=== PATIENT | male | born 1940 | race Caucasian/White ===

== ENCOUNTER 2020-12-22 16:27 | Inpatient (IN) | payer OTHER ==
[2020-12-22] MEDS ORDERED: ACETAMINOPHEN 500 MG TAB PO PRN (16:37)
[2020-12-22] MEDS ORDERED: MAGNES/ALUMIN/SIMET 30ML UCUP PO PRN (16:37)
[2020-12-22 17:26] LABS: Absolute Lymphocytes (CBC) 0.6 K/uL (0.7-4.9); Basophils % 0.3 % (0-1.3); Hematocrit 33.7 % (39.6-49.0); Lymphocytes % 5.1 % (15.3-44.8); RBC Red Blood Cell Count 3.42 M/uL (4.33-5.43)
[2020-12-22 17:34] VITALS: BMI 24.3
[2020-12-22 17:38] LABS: Albumin 2.4 g/dL (3.4-5.0); Bilirubin Total 0.4 mg/dL (0.2-1.0); Magnesium 2.7 mg/dL (1.8-2.4); Phosphorus 4.7 mg/dL (2.5-4.9); Potassium 4.9 mmol/L (3.5-5.1); Protein, Total 7.3 g/dL (6.4-8.2); Thyroid Stimulating Hormone 2.77 uIU/mL (0.360-3.740)
[2020-12-22 19:36] LABS: Urine Appearance CLOUDY (Clear); Urine Bilirubin NEGATIVE (Negative); Urine Blood 3+ (Negative); Urine Color Red (Yellow); Urine Glucose NEGATIVE (Negative); Urine Protein 2+ (Negative); Urine Specific Gravity <=1.005 (1.005-1.030); Urine Urobilinogen 0.2 mg/dL (0.2-1.0); Urine pH 6.5 (5.0-7.0)
[2020-12-22 20:04] LABS: Urine Bacteria <20 /HPF (NONE SEEN); Urine RBC TNTC /HPF (NONE SEEN)
[2020-12-22] MEDS: ALPRAZOLAM 0.25 MG TABLET PO PRN (20:06)
[2020-12-22] MEDS: TAMSULOSIN 0.4 MG SR CAP PO SCH (20:06)
[2020-12-22] MEDS: NA CHLORIDE 0.9% 1,000 ML IV SCH (20:06)
--- NOTE | 2020-12-22 20:16 | RAD REPORT ---
EXAM DESCRIPTION: RAD - Chest Single View - 12/22/2020 8:08 pm CLINICAL HISTORY: acute renal failure Chest pain. COMPARISON: No comparisons FINDINGS: Portable technique limits examination quality. There is a mild opacity seen in the medial right lung base which probably represents developing pneum onia. There is also haziness in the medial left lung base. The heart is upper limit normal size. No d isplaced fractures.
[2020-12-22 20:58] LABS: Blood Morphology Comment NOT SEEN (NOT SEEN); Platelet Estimate ADEQ
[2020-12-22] MEDS ORDERED: FINASTERIDE 5 MG TAB PO SCH (21:00)
[2020-12-22] MEDS ORDERED: HEPARIN 5000 UNIT/ML 1 ML VIAL SQ SCH (21:00)
[2020-12-23 04:26] LABS: Magnesium 2.4 mg/dL (1.8-2.4); Potassium 5.3 mmol/L (3.5-5.1)
[2020-12-23] MEDS: NA CHLORIDE 0.9% 1,000 ML IV SCH (04:38)
[2020-12-23] MEDS ORDERED: SOD POLYSTYREN SUL 15 GM/60 ML UCUP PO ONE (04:41)
[2020-12-23] MEDS: D5 0.45 NS 1,000 ML IV SCH ×2 (05:59→15:56)
[2020-12-23] MEDS: CEFTRIAXONE/SWI 1gm 1 GM/10 ML SYR IVP SCH (07:36)
[2020-12-23] MEDS ORDERED: CEFTRIAXONE 1 GM/NS 50 ML 1 GM/50 ML BAG IV SCH (09:00)
[2020-12-23] MEDS: TAMSULOSIN 0.4 MG SR CAP PO SCH (21:33)
[2020-12-23] MEDS: ALPRAZOLAM 0.25 MG TABLET PO PRN (21:34)
--- NOTE | 2020-12-24 00:11 | CON ---
Date of Consultation: 12/23/2020 Chief Complaint: Abnormal renal function test, acute kidney injury on chronic kidney disease. History Of Present Illness: The patient came to the hospital because of generalized weakness. Chest x-ray showed possible pneumonia. Renal panel showed elevated BUN and creatinine. The patient had F oley catheter. It was placed in the emergency room. Previously, he did not have any hematuria or dy suria or kidney stone. Workup is pending to screen for obstructive uropathy. Chest x-ray demonstrat ed likely early pneumonia. There is also haziness in the medial left lung base and medial right lung base is representing developing pneumonia. The patient does not have any recollection about kidney problem. He denies nonsteroidal anti-inflammatory medication. On arrival to the hospital, creatinin e was 2.8 and BUN 63. Electrolytes showed sodium 143, potassium 4.9, chloride 111, CO2 24, magnesium 2.7, phosphorus 4.7, calcium 8.9. The patient had urinalysis done and it showed 2+ protein, 3+ bloo d, presence of the red blood cells, WBC ranging from 5-10, although nitrates are negative and urine k etones is trace. Review of Systems: Constitutional: The patient denies fever or chills. Physical examination. Eyes: Denies vision changes. Ears, Nose, Mouth, and Throat: Denies sore throat or earache. Respiratory: Denies PND or orthopnea. He has shortness of breath. He is bedbound. GI: Denies nausea, vomiting, melena, hematemesis. : Denied dysuria or hematuria, although he has a chronic catheter, which was placed during this ad mission. There is no blood in the urine at this point. There is no microscopic hematuria. There is no gross hematuria. Past Medical History: The patient denies history of kidney stones. There is no chronic kidney disea se history in this particular patient. He has history of BPH and had lower urinary tract symptoms be fore he was taking Flomax. He has history of anxiety, allergic rhinitis, hyperlipidemia. Social History: Denies tobacco, alcohol, or illicit drugs. Family History: No kidney disease in the family. Physical Examination: General: The patient is awake, alert, follows commands. Eyes: Anicteric sclerae. EOMI. Ears, Nose, Mouth, and Throat: Oral mucosa moist. No pallor. Neck: Supple. No bruits. Lungs: Clear to auscultation bilaterally. Heart: S1, S2. Abdomen: Soft, benign. Extremities: No edema. Laboratory Data: Potassium is 5.3, sodium 136, chloride 114, CO2 28, BUN 44, creatinine 2.23, phosph orus 4.7, magnesium 2.4, BNP is 13,510, albumin 2.4, total protein 7.3. Impression And Plan: 1.Acute kidney injury. Serum creatinine has improved. The patient will continue low-sodium diet an d low-potassium diet. Potassium is up to 5.3. Re-evaluate blood work. 2.Pneumonia, shortness of breath. Continue antibiotics. 3.Urinalysis demonstrated WBC and multiple red blood cells, although the specimen was obtained via t he Lara catheter. There is 2+ proteinuria, which corresponds to moderately severe proteinuria. Sammie n is to check for any evidence of monoclonal gammopathy of unknown significance. Plan is to check sc reen for vasculitis and obtain previous medical history from primary care physician. AMAYA/LILIANA Voice ID: [id number] Report ID: [id number]
--- NOTE | 2020-12-24 01:51 | HP ---
Date of Admission: 12/23/2020 Chief Complaint: Stomach pain. History Of Present Illness: This is an 80-year-old very pleasant male patient, who saw Dr. De Guzman as his primary care provider about 10-[address] ago [address] after [address] De Guzman , he has not seen any physician in last several years. The patient does not take any medications at home and says he was feeling fine until last 2 weeks or so, his health has deteriorated. He says about 2 weeks ago, he had some stomach discomfort, felt like stomach upset and after couple of days, he got better and then he got sick to his stomach again. In last one week, he noted that his appetite has not been as good as before and he had some lower abdominal discomfort. With all these complaints, he went to [place] emergency room yesterday where he was found to have acute renal failure, elevated potassium. CAT scan of the chest and abdomen done, which showed some significant abnormality with bilateral pleural effusion and also distended urinary bladder with bilateral hydronephrosis. Dr. Lake placed a 16-Iraqi Lara catheter and drained approximately 1 L of urine, and he contacted me requesting admission to the our hospital and I agreed to take care of him at our facility. I saw him this morning and this was the first time I ever met this patient. He denies any chest pain. Denies any shortness of breath. Denies any significant weight changes lately. No leg swelling. No paroxysmal nocturnal dyspnea or orthopnea. He has had some back pain off and on lately. Allergies: PENICILLIN, DETAILS UNKNOWN. Medications: He was not taking any medications prior to this hospital admission. Review of Systems: GI: As mentioned above. Musculoskeletal: As mentioned above. Genitourinary: As mentioned above. All other systems reviewed and negative. Past Surgical History: Hernia repair at age 4 years and cataract surgery few years ago. Family History: The patient is single. Does not have any children. Does not have any siblings. His father due to lung cancer. Mother with heart disease. Social History: Negative for smoking or alcohol use. Past Medical History: Significant for allergic rhinitis. Physical Examination: VITAL SIGNS: Height 5 feet 9 inches, weight 165 pounds. Temperature 98.2, pulse 99, respiratory rate 17, blood pressure 124/78, oxygen saturation 95%. General: Awake, alert, oriented, not in distress. HEENT: Head atraumatic, normocephalic. Conjunctivae nonerythematous. Sclerae white. Mouth, no thrush or edema noted. Ears/Nose, no mass, lesion, discharge noted. Neck: Supple. No JVD, lymph nodes, bruit, thyromegaly noted. Lungs: Bilateral good equal air entry with diminished breath sounds with some crackles in lower lung wright. Not using any accessory muscles of respiration. Heart: Normal heart sounds. No murmur or gallop. Abdomen: Soft. Bowel sounds normal. No guarding, rigidity, tenderness, mass, hepatosplenomegaly, distention, or bruit noted. Extremities: No leg edema. No calf tenderness. Skin: No rash, ulcer, cellulitis. Lymphatics: No lymph node enlargement in neck, supraclavicular, infraclavicular region. Neuro: No focal neurological deficit. Chest: Unremarkable. External Genitalia: Significant for presence of Lara catheter, draining pink colored clear urine. Scrotum and testicle exam normal. Rectal: Deferred. Laboratory Data: Upon admission, white count 11.6, hemoglobin 10.9, platelets 330. Upon admission, sodium 143, potassium 4.9, chloride 111, bicarb 24, BUN 63, creatinine 2.80, glucose 64. Liver function tests unremarkable. TSH 2.7 and PSA 117. This morning, sodium 146, potassium 5.3, chloride 114, bicarb 28, BUN 44, creatinine 2.23, glucose 81. Urinalysis showed 3+ blood, nitrite negative, leukocyte esterase 1+, RBC TNTC, WBC 5-10, bacteria less than 20. Testing done at the outside emergency room at [facility] showed glucose 155, BUN 50, creatinine 2.9, potassium 5.7, sodium 138. CAT scan of the abdomen and pelvis shows evidence of diverticulosis, distended bladder with bilateral hydronephrosis and enlarged prostate. CAT scan of chest showed evidence of congestive heart failure changes with bilateral moderate pleural effusion, presence of coronary artery calcification. EKG shows sinus tachycardia with ST- T wave abnormality in the anterolateral leads, could be due to anterolateral ischemia. Impression: 1. Acute kidney injury. 2. Probable prostate cancer. 3. Urinary retention with bilateral hydronephrosis secondary to above. 4. Hyperkalemia. 5. Anemia, unspecified. 6. Diverticulosis. 7. Osteoarthritis, multiple sites. 8. Coronary artery calcification. 9. Congestive heart failure. Plan: The patient will be admitted to the hospital for further evaluation and management of this problem. After he was admitted to the hospital, IV fluid was started using normal saline at 100 cc/hour. As of this morning, I have changed IV fluid to D5 half-normal saline. Nephrology consultation was requested. We will go ahead and follow up on blood work tomorrow morning. No need for further intervention for anemia problem. Kayexalate 30 g p.o. x1 dose was given for treatment of hyperkalemia this morning. We will consult studio sales associate for abnormal EKG. Echo with Doppler was ordered to be done today and we will do Lexiscan stress test tomorrow. Details and plan of treatment discussed with the patient and our most important concern is elevated PSA indicating probable prostate cancer. He will need further evaluation and management. After discharge, we will have to refer him to higher level of care and I did discuss with him about different options including my recommendation for him to go to [facility] upon discharge and my office will assist him with appointment and he is agreeable with this. The patient will need to go home with Lara catheter and we will provide teaching regarding Lara catheter care to him. The patient was made aware that until unless proven otherwise this elevated PSA problem is due to underlying prostate cancer and he understands that final diagnosis will depend on the biopsy result. His CAT scan and chest x-ray finding is indicating congestive heart failure. Clinically, he does not have any symptoms, but that is definitely our concern. So far, he has not shown any signs and symptoms of congestive heart failure and we will go ahead and continue current IV fluid hydration and at some point, we may have to stop his IV fluid and if he needs any treatment for congestive heart failure, obviously we will consider that. Details were discussed with Dr. Doran from Cardiology service. I will see him tomorrow morning for followup. LINDSAY/MODL Voice ID: [id number] REE
[2020-12-24] MEDS: D5 0.45 NS 1,000 ML IV SCH (02:00)
[2020-12-24 04:00] LABS: Absolute Lymphocytes (CBC) 1.3 K/uL (0.7-4.9); Basophils % 0.6 % (0-1.3); Hematocrit 31.6 % (39.6-49.0); Lymphocytes % 16.4 % (15.3-44.8); RBC Red Blood Cell Count 3.21 M/uL (4.33-5.43)
[2020-12-24 04:23] LABS: Potassium 4.1 mmol/L (3.5-5.1)
[2020-12-24] MEDS ORDERED: D5 0.45 NS 1,000 ML IV SCH (06:48)
[2020-12-24] MEDS: CEFTRIAXONE/SWI 1gm 1 GM/10 ML SYR IVP SCH (08:07)
[2020-12-24] MEDS ORDERED: REGADENOSON 0.4 MG/5 ML SYR IV ONE (09:07)
--- NOTE | 2020-12-24 09:11 | ECHO ---
HEIGHT: 5 ft 9 in WEIGHT: 165 lb 3.2 oz DATE OF STUDY: 12/23/[address]: Alejandro Sr MD 2-DIMENSIONAL: YES M.MODE: YES DOPPLER: YES COLOR FLOW: YES TDS: NO PORTABLE: NO DEFINITY: NO BUBBLE STUDY: NO DIAGNOSIS: EVALUATE LEFT VENTRICULAR EJECTION FRACTION CARDIAC HISTORY: CATHERIZATION: SURGERY: [*] PROSTHETIC VALVE: PACEMAKER: MEASUREMENTS (cm) DIASTOLIC (NORMALS) SYSTOLIC (NORMALS) IVSd 1.1 (0.6-1.2) LA Diam 4.2 (1.9-4.0) LVEF 42% LVIDd 4.2 (3.5-5.7) LVIDs 3.3 (2.0-3.5) %FS 21% LVPWd 1.1 (0.6-1.2) Ao Diam 2.6 (2.0-3.7) 2 DIMENSIONAL ASSESSMENT: RIGHT ATRIUM: NORMAL LEFT ATRIUM: NORMAL RIGHT VENTRICLE: NORMAL LEFT VENTRICLE: DEPRESSED TRICUSPID VALVE: MITRAL VALVE: PULMONIC VALVE: NORMAL AORTIC VALVE: NORMAL PERICARDIAL EFFUSION: NONE AORTIC ROOT: NORMAL LEFT VENTRICULAR WALL MOTION: ANTERIOSEPTAL AND APICAL HYPOKINESIS. DOPPLER/COLOR FLOW: SEE BELOW. COMMENTS: MILDLY DEPRESSED LEFT VENTRICULAR EJECTION FRACTION 40-45%. ANTERIOSEPTAL AND APICAL HYPOKINESIS. MODERATE TRICUSPID REGURGITATION. MILD MITRAL REGURGITATION. SEVERE PULMONARY HYPERTENSION WITH RIGHT VENTRICULAR SYSTOLIC PRESSURE >60 mmHg. TECHNOLOGIST: Greg ALEJO
--- NOTE | 2020-12-24 10:04 | RAD REPORT ---
EXAM DESCRIPTION: US - Renal Ultrasound-Complete - 12/24/2020 9:40 am CLINICAL HISTORY: [place], hematuria COMPARISON: No comparisons FINDINGS: The right kidney measures 11.2 x 6.3 x 6.2 cm. The left kidney measures 11.1 x 6.1 x 5.2 cm. Renal cortical thickness and echogenicity are normal. A small 15 x 11 mm cortical cyst present la teral mid right kidney. No solid mass lesion of either kidney identifiable. Bilateral significant hydronephrosis is seen of the pelvis and calices. Findings are more pronounced on the right. There is no baseline 2 utilized for comparison. No gross evidence for an obstructing ca lculus. Urinary bladder is fully contracted around a Lara catheter. No assessment can be made of possibly ob structive bladder or prostate mass. IMPRESSION: Significant bilateral hydronephrosis, right greater than left, without identifiable obst ructing calculi. Urinary bladder is fully contracted around a Lara catheter which precludes assessment of any bladder wall mass, prostate mass or UVJ stone. No other significant findings.
--- NOTE | 2020-12-24 11:04 | RAD REPORT ---
EXAM DESCRIPTION: NM - Rest Stress Cardiac Imaging - 12/24/2020 10:54 am CLINICAL HISTORY: Chest pain COMPARISON: None. TECHNIQUE: The patient was administered approximately 10 mCi of Tc 99m Sestamibi prior to resting SP ECT imaging of the heart. The patient was then administered approximately 30 mCi of Tc 99m Sestamibi following exercise or pharmacologic stress. Multiplanar SPECT images were reviewed. FINDINGS: The end diastolic volume is 152 ml, the end systolic volume is 122 ml, and the ejection fr action is 20 %. No stress-induced ischemic changes can be confirmed on this study. Large area of pronounced loss of a ctivity seen along the inferior wall from base to apex. Anterior wall apex also shows marked diminish ed activity. IMPRESSION: No stress-induced ischemia. Large fixed defects involving the inferior wall and apex favored to be scarring rather than attenuati on artifact. The enlarged end-diastolic volume of 152 mL and poor 20% ejection fraction would support scarring as well.
--- NOTE | 2020-12-24 11:11 | TREADPHA ---
DX: CHEST PAIN Date of Study: 12/24/2020 Ht: 5' 9 " Wt: 165 lb 3.2 oz Consulting Physician: SAWYER MEDICATIONS: NO HOME MEDICATIONS HISTORY: PHYSICIAL EXAMINATION: RESTING B.P.: 156/95 RESTING H.R.: 103 RESTING EKG: SINUS RHYTHM, LEFT VENTRICULAR HYPERTROPHY, OLD INFERIOR MYOCARDIAL INFARCTION. PROTOCOL: PHARMACOLOGIC EXERCISE TIME: 3:30 B.P. AT [place] STRESS: 123/72 IMPRESSION: LEXISCAN STRESS TEST PERFORMED. CARDIOLITE INJECTED PER PROTOCOL. SEE NUCLEAR MEDICINE REPORT. NO SUPRAVENTRICULAR TACHYCARDIA. NO ARRHYTHMIAS NOTED. RESPIRATORY EVEN NONLAORED. PATIENT TOLERATED WELL.
--- NOTE | 2020-12-24 11:51 | PN ---
Date of Progress Note: 12/24/2020 Subjective: The patient was admitted with acute kidney injury secondary to prerenal/obstructive urop athy. After Lara insertion and started hydration, kidney function has been improved significantly. Upon admission, creatinine 2.8. Currently today, creatinine down to 1.6. The patient found to have elevation in BNP up to 13,000 today, trending down to 7500. The patient undergone stress test. PSA was elevated. Physical Examination: General: When I saw the patient; the patient lying in bed flat, not on any distress. Vital Signs: Blood pressure 140/85, pulse of 100, afebrile. The patient had good urine output of 32 00. The patient was negative of 1400. Chest: Clear to auscultation. Heart: S1, S2. Regular. Abdomen: Soft, nontender. Extremities: No edema. Neuro: Alert. No focality. Laboratory Data: Sodium 144, potassium 4.1, bicarb 27, BUN 32, creatinine 1.6, calcium 8, magnesium 2. BNP 7500. PSA 117. TSH 2.7. Urinalysis; RBC too numerous, WBC only 10. Current Medications: The patient on include; 1.Ceftriaxone. 2.Flomax. 3.D5 half. Assessment And Plan: 1.Acute kidney injury secondary to obstructive uropathy, poor perfusion, ATN, looked to me normal vo lume with the finding of the echocardiogram and elevation of BNP. I am going to hold IV fluid for th e time being and we will monitor the patient. 2.Hyperkalemia, status post treatment, resolved. 3.Obstructive uropathy, status post Lara. We will follow up with Primary. The patient was placed on Flomax. We will follow up. 4.Elevation of PSA. The patient is going to need outpatient workup. Continue Lara. 5.Congestive heart failure, newly diagnosis. We will follow up with Cardiology, discontinue IV flui d. 6.Marginal hypernatremia secondary to obstructive. Continue Lara, discontinue IV fluid. We will m onitor. CLAU/LILIANA Voice ID: [id number] Report ID: [id number]
[2020-12-24 12:56] LABS: Urine Protein/Creatinine Ratio 2.88 ratio (<0.15)
[2020-12-24] MEDS: TAMSULOSIN 0.4 MG SR CAP PO SCH (20:43)
[2020-12-24] MEDS: ALPRAZOLAM 0.25 MG TABLET PO PRN (20:43)
--- NOTE | 2020-12-24 21:56 | PN ---
Date of Progress Note: 12/24/2020 Subjective: The patient was seen this morning for followup. He was lying in bed, not in distress. No new complaints or problems reported by him. No nausea, vomiting. No shortness of breath. Objective: Vital signs: Reviewed. HEENT: Unremarkable. Lungs: Clear to auscultation, except diminished air entry in the lung bases. Not using any accessory muscles of respiration. Heart: Sounds normal. Abdomen: Soft. Bowel sounds normal. No guarding, rigidity, tenderness, distention. Extremity: No leg edema. Laboratory Data: Echocardiogram done today shows ejection fraction around 42% with anterior and apical hypokinesis and stress test came back negative for stress-induced ischemia but it did show anterior and apical wall scarring. Sodium 144, potassium 4.1, chloride 112, bicarb 27, BUN 32, creatinine 1.63, glucose 124. ProBNP 7595. Impression: 1. Acute kidney injury. 2. Probable prostate cancer. 3. Congestive heart failure, chronic, systolic. 4. Anemia, unspecified. 5. Generalized weakness. Plan: We will go ahead and continue IV fluid, but reduce rate per order. We will repeat blood work tomorrow morning. Renal function is improving very well. There is a good possibility that tomorrow we might be able to discharge him to go home depending on his condition and his blood work results. His urine is still showing gross hematuria. We will continue to keep the Lara catheter in at this point and we have initiated outpatient referral process for the patient to go to [facility] for further evaluation and management of this elevated PSA. I did discuss with him about all the details. This morning, his friend Lulu Frey was present in the room with him and the patient gave me his permission to communicate with her regarding all the protected health informations and also requested that we provide her number to [facility] for any appointments and any other necessary communication. I will see him tomorrow for followup. LINDSAY/MODL Voice ID: [id number] Report ID: [id number] REE
[2020-12-25 04:16] LABS: RBC Red Blood Cell Count 3.38 M/uL (4.33-5.43)
[2020-12-25 04:45] LABS: Albumin 2.2 g/dL (3.4-5.0); Ferritin 896.6 ng/mL (26-388); Folic Acid, (Folate) 8.5 ng/mL (3.1-17.5); Phosphorus 3.4 mg/dL (2.5-4.9); Potassium 4.2 mmol/L (3.5-5.1)
--- NOTE | 2020-12-25 07:10 | RAD REPORT ---
EXAM DESCRIPTION: Miguel Single View12/25/2020 6:04 am CLINICAL HISTORY: Shortness of breath COMPARISON: December 22 FINDINGS: Bilateral pulmonary opacities have resolved. The heart is normal size IMPRESSION: Resolution in the bilateral pulmonary opacities
[2020-12-25] MEDS ORDERED: carvediloL 3.125 MG TAB PO SCH (08:00)
[2020-12-25] MEDS ORDERED: SACUBITRIL/VALSARTAN 24/26 MG TAB PO SCH (09:00)
[2020-12-25] MEDS: CEFTRIAXONE/SWI 1gm 1 GM/10 ML SYR IVP SCH (09:28)
[2020-12-25] MEDS: FUROSEMIDE 20 MG TABLET PO SCH (09:29)
[2020-12-25] MEDS: METOPROLOL XL 25 MG TAB PO SCH (09:29)
[2020-12-25] MEDS ORDERED: SOD FERRIC GLUC COMPLX/SUCROSE 250 MG in NA CHLORIDE 0.9% 250 ML IV SCH (12:00)
--- NOTE | 2020-12-25 12:19 | PN ---
Date of Progress Note: 12/25/2020 Subjective: The patient was admitted with acute kidney injury with UTI, obstructive uropathy. The p atient's Lara was inserted, started on hydration, kidney function started trending down. The patien t found to have elevation in PSA. Physical Examination: Vital Signs: When I saw the patient today; blood pressure 118/80, pulse of 94, afebrile. The patien t off IV fluid in the last 24 hours. The patient had good urine output of 4100. Negative balance of 300. Chest: Faint crackles bilateral base. Heart: S1, S2. Regular. Abdomen: Soft, nontender. Extremity: Trace edema. Neuro: Alert. No focality. Laboratory Data: WBC 8, H and H 10.4/31.6, platelets 283. Sodium of 143, potassium 4.2, bicarb 27, BUN 29, creatinine down to 1.5, GFR of 44, calcium 8.3, phosphorus 3.4, iron saturation 23, ferritin 896, albumin 2.2, corrected calcium is 9.6. PTH 96. Vitamin D is still pending. PC ratio 2.88. Se rum protein electrophoresis is still pending. Current Medications: The patient on are ceftriaxone, Flomax, Valsartan, Entresto was started by PCP today, metoprolol, Lasix. Assessment And Plan: 1.Acute kidney injury, normal-sized kidney, obstructive uropathy, proteinuric, close to nephrotic wi th anemia. Our differential diagnosis was chronic obstructive uropathy causing FSGS causing the prot einuria with the presence of the anemia, need to rule out light chain disease or any paraneoplastic m embranous, doubt to be any autoimmune disease given that the improvement on the kidney function after Lara placement, but again we need to rule out light chain disease. Waiting for serum protein elect rophoresis. I am going to be continue on holding the IV fluid given the picture of congestive heart failure. Given the recent recovery from the acute kidney injury and the presence of marginal hyperka lemia earlier, I am going to be reluctant to initiate the Entresto right now. The patient is going t o be a good candidate for it as outpatient after 4-6 weeks of recovery. We will hold it for the time being and we will follow up. 2.Hypertension, controlled, optimal. Continue current medication. Hold Entresto as above. 3.Obstructive uropathy. Was started on Flomax. Questionable of prostate cancer given the elevation in PSA. The patient is going to be scheduled for evaluation as outpatient at [facility]. 4.Urinary tract infection/prostatitis. We will consider the patient to be discharged on antibiotic for 3-4 weeks to treat as a prostatitis for the time being and continue on the Lara. 5.Iron deficiency anemia. I am going to start the patient on IV iron and we will follow up. 6.Hyperkalemia, resolved. YRN Voice ID: [id number] Report ID: [id number]
[2020-12-25] MEDS: TAMSULOSIN 0.4 MG SR CAP PO SCH (21:00)
--- NOTE | 2020-12-25 22:07 | PN ---
Date of Progress Note: 12/25/2020 Subjective: The patient was seen this morning for followup. He actually looked a lot better this mo rning than last few days. Denies any new complaints this morning. Objective: Vital Signs: Reviewed. General: His appetite has improved. HEENT: Unremarkable. Lungs: Bilateral good equal air entry. Clear to auscultation. Not in respiratory distress. Heart: Sounds normal. Abdomen: Soft. Bowel sounds normal. No guarding, rigidity, tenderness, or distention. Extremities: No leg edema, Laboratory Data: Reviewed. Impression: 1.Acute kidney injury. 2.Probable prostate cancer. 3.Congestive heart failure, chronic, systolic. 4.Coronary artery disease. Plan: We will go ahead and start the patient on furosemide 20 mg daily, metoprolol succinate 25 mg d aily, and Entresto 24/26 mg one tablet 2 times a day. Ambulation was encouraged. We will repeat blo od work tomorrow morning. Creatinine is slightly better today than yesterday, it is 1.5 now. He is no longer on IV fluid. Renal ultrasound was unremarkable. Echocardiogram and stress test finding di scussed with the patient. Echocardiogram shows ejection fraction 42%. Stress test shows ejection fr action 20%. I believe that his ejection fraction is probably somewhere between 20% to 40% on basis o f his clinical condition as my best guess. I am concerned about hypokinesis of anterior and apical w all noted on stress test as well as echocardiogram, and ideally the patient should have cardiac cath to look at his coronaries, but considering current kidney problems, we will not be able to do that an d it will be done electively in future as per my discussion with Dr. Doran. We will change his Fol ey catheter to leg bag and have nursing staff provide education to the patient regarding Lara cathet er care and plan is to discharge him to go home tomorrow. Details were discussed with the patient. LINDSAY/MODL Voice ID: [id number] Report ID: [id number]
[2020-12-25] MEDS: ALPRAZOLAM 0.25 MG TABLET PO PRN (23:52)
[2020-12-26 05:36] LABS: Absolute Lymphocytes (CBC) 1.4 K/uL (0.7-4.9); Basophils % 1.1 % (0-1.3); Hematocrit 35.4 % (39.6-49.0); Lymphocytes % 18.8 % (15.3-44.8); MPV 8.1 fL (7.6-11.3); RBC Red Blood Cell Count 3.64 M/uL (4.33-5.43)
[2020-12-26 05:51] LABS: Albumin 2.3 g/dL (3.4-5.0); Magnesium 1.8 mg/dL (1.8-2.4); Phosphorus 3.2 mg/dL (2.5-4.9); Potassium 4.4 mmol/L (3.5-5.1)
[2020-12-26 07:21] VITALS: O2SAT 99
[2020-12-26] MEDS: CEFTRIAXONE/SWI 1gm 1 GM/10 ML SYR IVP SCH (08:16)
[2020-12-26] MEDS: FUROSEMIDE 20 MG TABLET PO SCH (08:19)
[2020-12-26] MEDS: METOPROLOL XL 25 MG TAB PO SCH (08:19)
[2020-12-26 12:44] VITALS: BP 130/73; TEMP 97.8
--- NOTE | 2020-12-26 13:41 | PN ---
Date of Progress Note: 12/26/2020 Subjective: The patient was admitted with acute kidney injury secondary to obstructive uropathy, fou nd to be close to nephrotic proteinuria. The patient's after placing a Lara kidney function has bee n improved significantly. The patient found to have congestive heart failure with ejection fraction down to between 20% to 40%. The patient does not have any history before. Physical Examination: Vital Signs: Blood pressure 117/67, pulse of 92. Chest: Faint rales bilateral base. Heart: S1, S2. Systolic murmur. Abdomen: Soft, nontender. Extremities: No edema. The patient on room air. Neuro: Alert. No focality. Laboratory Data: WBC 7.5, H and H 12/35.4. Sodium 143, potassium 4.4, bicarb 27, BUN 29, creatinine 1.3, GFR of 53, calcium 8.5, phosphorus 3.2, magnesium 1.8. Serum protein electrophoresis is still pending. PTH 96, PC ratio 2.9. Current Medications: The patient on include ceftriaxone, Flomax, IV iron, Lasix. Assessment And Plan: 1.Acute kidney injury secondary to obstructive uropathy. I agree with leg bag, to follow up with Ur ology. We will follow up the patient as outpatient. 2.Nephrotic range of proteinuria. 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 We will follow up serum protein electrophoresis, doubt to be any autoim mune disease given the improvement in the kidney function. Mostly, it is just secondary to obstructi on. We will follow up. We will consider to challenge the patient with LEONOR inhibitor/ARB as outpatie nt to give the benefit towards the congestive heart failure also. 3.Hypertension. Agree with the Lasix. 4.Congestive heart failure as by Cardiology. The patient will need cardiac cath as outpatient. We will follow up with Cardiology. 5.Iron deficiency anemia. Continue IV iron. CLAU/LILIANA Voice ID: [id number] Report ID: [id number]
--- NOTE | 2020-12-26 16:32 | RAD REPORT ---
EXAM DESCRIPTION: NM - Bone Imaging Whole Body - 12/26/2020 4:24 pm CLINICAL HISTORY: prostate cancer COMPARISON: Chest Single View dated 12/22/2020; Rest Stress Cardiac Imaging dated 12/24/2020; Renal Ul trasound-Complete dated 12/24/2020; Chest Single View dated 12/25/2020 TECHNIQUE: The patient was administered approximately 26 mCi Tc 99m MDP. Anterior and posterior whol e-body views were obtained at 3-4 hours. FINDINGS: Physiologic distribution of the radiopharmaceutical is noted with the expected amount of k idney and urinary bladder activity. Areas of periarticular activity are seen that are typical for degenerative change. Foci of elevated a ctivity left aspect of the cervical spine is likely degenerative in etiology. Abnormal uptake is seen the in the proximal right femur including the right femoral head, neck and pr oximal shaft most compatible with metastatic disease. IMPRESSION: Abnormal activity in the proximal right femur is present most compatible with bony metas tatic disease.
--- NOTE | 2020-12-26 22:17 | DS ---
Date of Discharge: 12/26/2020 Disposition: Discharged to go home. Physical Examination: HEENT: Unremarkable. Lungs: Clear to auscultation. Heart: Sounds normal. Abdomen: Soft. Bowel sounds normal. No guarding, rigidity, tenderness, distention. Extremities: No leg edema. Laboratory Data: Upon admission, white count 11.6, hemoglobin 10.9, platelets 338. Today, white cou nt 7.5, hemoglobin 12, platelets 339. Last chemistry today, sodium 143, potassium 4.4, chloride 112, bicarb 27, BUN 29, creatinine 1.30, glucose 96, magnesium 1.8. PSA was 117, done upon admission. B one scan done today shows increased abnormal uptake in proximal femur and hip region consistent with metastatic disease. Final Diagnoses: 1.Acute kidney injury. 2.Probable prostate cancer with metastatic disease. 3.Urinary retention with bilateral hydronephrosis secondary to above. 4.Congestive heart failure, chronic, systolic. 5.Hyperkalemia. 6.Anemia, unspecified. 7.Diverticulosis. 8.Coronary artery disease. Hospital Course: This is an 80-year-old male patient, who came into [facility] emergency room with stomac h pain. Please see dictated H and P for more information. After the patient presented there, he was found to have elevated potassium and acute kidney injury. CAT scan of the chest had shown coronary calcification, bilateral pleural effusion, changes of congestive heart failure. CAT scan of abdomen had shown urinary retention with bilateral hydronephrosis and enlarged prostate. Lara catheter was placed and 1 L of urine was obtained immediately. The patient was admitted to the hospital under my service. After he was admitted, IV fluid was started and Nephrology consultation was requested. The patient's renal function improved on a day-to-day basis and as of about day before yesterday, we dis continued his IV fluid and his renal function continued to improve to normal range now. He had eleva ruthie potassium, which was corrected with Kayexalate. His PSA was done upon admission, which came back abnormal at 117 and I am concerned about possibility of prostate cancer. Today prior to discharge, we did obtain a bone scan and bone scan came back abnormal indicating metastatic disease of hip and p roximal femur region. I did discuss with the patient regarding all his findings and informed him duarte t until unless proven otherwise, we are dealing with prostate cancer and my recommendation was for hi m to go to [facility] for further evaluation and management of this problem. He was agreeable to do so, so we did initiate the referral process [place] [facility] [place] the patient now already has appointment to go there next week on Wednesday. Cardiology consultation was obtained from Dr. Doran as I am concerned about him having coronary artery disease with this congestive heart fa ilure problem. Echocardiogram showed ejection fraction of 42% with anterior and apical wall hypokine sis, and stress test was done which revealed no evidence of stress-induced ischemia and on nuclear me dicine test, ejection fraction was noted to be 20% with anterior and apical wall hypokinesia. My con cern is that the patient's ejection fraction was probably between 20% to 40%, somewhere around 30% or so on basis of his clinical picture. We did start him on appropriate medical management for congest anjel heart failure, which included furosemide, Entresto, and metoprolol. We will not start him on asp irin yet because the patient had gross hematuria ever since Lara catheter placement throughout this hospitalization and today is the first day that his urine does not have any gross hematuria. His uri ne was nice, yellow, and clear. I informed him that in near future we will consider to start him on aspirin 81 mg daily. Ideally, the patient problem will need cardiac catheterization, but that will n eed to be delayed until we have a little bit more clear picture about what is going on with his prost ate and in view of his acute kidney injury, any such invasive procedure should be delayed at a later date. The patient started ambulating well. His appetite improved, started eating now. His chest x- ray that was repeated yesterday came back normal. His pleural effusion problem has resolved now. Discharge Medications And Instructions: 1.Follow up at my office on 01/01/2021 at 10 a.m. 2.Follow up with Dr. Doran on 12/31/2020 as per his appointment, which he already has it and also follow up at [facility] on 12/31/2020 as per his appointment. 3.Take following medication as prescribed: a.Tamsulosin 0.4 mg p.o. daily at bedtime. b.Atorvastatin 40 mg p.o. daily at bedtime. c.Metoprolol succinate 25 mg p.o. daily in morning. d.Furosemide 20 mg daily in the morning. e.Entresto 24/26 mg 1 tablet 2 times a day. LINDSAY/MODL Voice ID: [id number] Report ID: [id number]
--- NOTE | 2020-12-28 14:13 | CON ---
Date of Consultation: 12/23/2020 Reason For Consultation: Chest pain. History Of Present Illness: Mr. Nix is an male with past medical history of benign pro static hypertrophy, anxiety, hyperlipidemia, allergic rhinitis. He was admitted to the hospital for acute kidney injury. His main complaint was generalized weakness. Chest x-ray showed possible pneum onia. Workup for obstructive uropathy was pending. His creatinine was 2.8 with a BUN of 63. He had proteinuria and hematuria, microscopic. Denied any chest pain or unexplained nausea or vomiting or diaphoresis. Denied PND, orthopnea, pedal edema, palpitations, or syncope. Past Medical History: As stated above. Social History: Negative for alcohol or tobacco or illicit drugs. Family History: Negative. Physical Examination: Vital Signs: Stable. He was afebrile. HEENT: Negative. Neck: Supple without any bruit, lymphadenopathy, JVD, or thyromegaly. Chest: Clear to auscultation and percussion. Cardiac: Revealed a regular rhythm and rate without any murmurs, gallops, or rubs. Abdomen: Benign. Extremities: Revealed no clubbing, cyanosis, or edema. Diagnostic Data: As stated earlier. Impression And Plan: 1.Acute kidney injury. Potassium is 5.3. Nephrology is involved. 2.Pneumonia. 3.Urinalysis showing possible urinary tract infection and hematuria. 4.Weakness, generalized. I think it would be reasonable to have him do an echocardiogram and a Trisha scan. We will see what those showed before making further decisions. I will discuss the case further with Dr. Sr. ZITA/LILIANA Voice ID: [id number] Report ID: [id number]
[2020-12-29 00:07] LABS: Vitamin D 1,25-Dihydroxy Total 34 pg/mL (18-72); Vitamin D,1,25-OH2, D2 <8 pg/mL
[2020-12-29 03:44] LABS: Beta Globulin 24 HR Urine 12 %; Gamma Globulin, 24hr Urine 20 %; Interpretation: REPORT; Protein/Crea Ratio in g 2898 mg/g creat (<=114); Protein/Crea Ratio in mg 2.898 (<=0.114); Urine Alpha-2-Globulins, 24 Hr 14 %; Urine PEP Abn Protein Band1 REPORT; Urine Total Volume 24 Hours 2775 mL
[2020-12-29 20:50] LABS: Albumin, (SPE) 2.8 g/dL (3.8-4.8); Alpha-1-Globulins 0.5 g/dL (0.2-0.3); Alpha-2-Globulins 1.3 g/dL (0.5-0.9); Gamma Globulins 0.7 g/dL (0.8-1.7); INTERPRETATION REPORT
[2020-12-31 11:30] LABS: ELECTROPHORESIS (U): REPORT
== END 2020-12-26 17:15 | disposition home or self-care (01) | DRG 682 ==
LOC: 4TH 16:27
PROVIDERS: ADMIT Internal Medicine; ATTEND Internal Medicine
DX: N17.0 Acute kidney failure with tubular necrosis (principal); J18.9 Pneumonia, unspecified organism; E87.0 Hyperosmolality and hypernatremia; I50.22 Chronic systolic (congestive) heart failure; C79.9 Secondary malignant neoplasm of unspecified site; I11.0 Hypertensive heart disease with heart failure; N13.6 Pyonephrosis; E87.5 Hyperkalemia; D50.9 Iron deficiency anemia, unspecified; C61 Malignant neoplasm of prostate; K57.90 Diverticulosis of intestine, part unspecified, without perforation or abscess without bleeding; I25.10 Atherosclerotic heart disease of native coronary artery without angina pectoris; R97.20 Elevated prostate specific antigen [PSA]; R31.0 Gross hematuria; R33.9 Retention of urine, unspecified; Z88.0 Allergy status to penicillin; Z20.822 Contact with and (suspected) exposure to COVID-19
CPT/HCPCS: 36415; 71045; 76770; 78306; 78452; 80048; 80053; 80061; 80069; 81001; 82570; 82607; 82652; 82728; 82746; 83540; 83735; 83880; 83970; 84100; 84156; 84165; 84166; 84443; 84466; 85025; 85044; 86021; 86334; 87086; 87088; 93005; 93017; 93306; 97116; 97161; A9500; A9503; G0103; J0696; J2785; J2916; J7030; J7050; J7799; U0003

== ENCOUNTER 2022-06-16 08:11 | Day surgery (SDC) | payer OTHER ==
--- NOTE | 2022-06-09 15:23 | RAD REPORT ---
EXAM DESCRIPTION: RAD - Chest Pa And Lat (2 Views) - 06/09/2022 3:15 pm CLINICAL HISTORY: pre op for surgery Chest pain. COMPARISON: Chest Single View dated 12/25/2020; Chest Single View dated 12/22/2020 FINDINGS: The lungs are clear. The heart is upper limit of normal in size. No displaced fractures. S mall hiatal hernia.
[2022-06-09 15:25] LABS: Absolute Lymphocytes (CBC) 1.3 K/uL (0.7-4.9); Hematocrit 39.8 % (39.6-49.0); Lymphocytes % 22.4 % (15.3-44.8); MCV 98.9 fL (80-100); MPV 7.7 fL (7.6-11.3); RBC Red Blood Cell Count 4.02 M/uL (4.33-5.43)
[2022-06-09 15:28] LABS: Protime INR 0.94
[2022-06-09 15:42] LABS: Potassium 4.2 mmol/L (3.5-5.1)
--- NOTE | 2022-06-10 16:26 | EKG ---
Test Date: 2022-06-09 Test Time: 14:58:50 Visual Merchandiser: JAE MEASUREMENT RESULTS: Intervals: Rate: 72 NJ: 204 QRSD: 86 QT: 416 QTc: 455 [place]: P: 54 NJ: 204 QRS: -5 T: 1 INTERPRETIVE STATEMENTS: Normal sinus rhythm Nonspecific ST abnormality Abnormal ECG Compared to ECG 12/22/2020 17:01:47 Sinus tachycardia no longer present Possible ischemia no longer present ST (T wave) deviation still present Electronically Signed On 06-10-22 16:23:09 FIELD RESEARCH ASSISTANT by Catarino Doran
[~2022-06-16 08:11] MED LIST: Gentamicin Inj 160 MG in NA CHLORIDE 0.9% 100 ML IV SCH
[2022-06-16] MEDS ORDERED: AMPICILLIN SODIUM 2 GM/VIAL VIAL ONE (08:32)
[2022-06-16] MEDS ORDERED: Ringers Lactate 1,000 ML IV ONE (08:32)
[2022-06-16] MEDS ORDERED: FENTANYL CITR 100 MCG/2 ML ONE ×2 (11:06→12:46)
[2022-06-16] MEDS ORDERED: LIDOCAINE 1% MPF 5 ML VIAL ONE (11:06)
[2022-06-16] MEDS ORDERED: propofoL 200 MG/20 ML VIAL IV ONE ×2 (11:06→12:10)
[2022-06-16] MEDS ORDERED: MIDAZOLAM HCL 2 MG/2 ML INJ ONE (11:06)
[2022-06-16] MEDS ORDERED: EPHEDRINE SULF 50 MG/ML VIAL ONE (11:52)
[2022-06-16] MEDS ORDERED: NS 0.9% VIAL 10 ML ONE (11:53)
[2022-06-16] MEDS ORDERED: KETOROLAC 30 MG/ML INJ ONE (12:02)
[2022-06-16] MEDS ORDERED: ONDANSETRON 4 MG/2 ML VIAL ONE (12:05)
[2022-06-16] MEDS ORDERED: ROCURONIUM 50 MG/5 ML VIAL IV ONE (12:13)
[2022-06-16] MEDS ORDERED: CODEINE 30MG/APAP 300MG TAB PO PRN (14:41)
[2022-06-16] MEDS ORDERED: PHENAZOPYRIDINE 100MG TAB PO ONE ×2 (14:41→15:06)
[2022-06-16 15:13] VITALS: BP 135/69; TEMP 97.4; O2SAT 97
--- NOTE | 2022-06-17 13:17 | OP ---
Surgeon: ANSHU APODACA Preoperative Diagnoses: 1.Benign prostatic hypertrophy with massive intravesically projecting median lobe causing obstructio n and symptoms. 2.Bladder calculus approximately 3 cm. 3.Prostate cancer. Postoperative Diagnoses: 1.Benign prostatic hypertrophy with massive intravesically projecting median lobe causing obstructio n and symptoms. 2.Bladder calculus approximately 3 cm. 3.Prostate cancer. Principal Procedures: 1.Cystolitholapaxy using the Thulium laser. 2.Bipolar transurethral resection of the prostate. Indication For Procedure: Mr. Nix is an 81-year-old gentleman with a diagnosis of prostate cancer on androgen deprivation therapy, who was planning to start radiation therapy. Fiducial markers and SpaceOAR gel were requested, but the patient had significant obstructive urinary symptoms and some he maturia. He underwent evaluation revealing massive intravesical projection of a median lobe contribu ting to the obstruction with the formation of a bladder calculus approximately 3 cm in diameter. Sin ce his urinary symptoms would have been horrible with a high likelihood of urinary retention and/or w orsening of his gross hematuria associated with the presence of the bladder calculus, unfortunately, he needed surgical management of his obstruction and the bladder calculus before radiation therapy co uld begin. As a result, he was counseled on the need for cystolitholapaxy and bipolar TURP, with sub sequent SpaceOAR gel and fiducial markers to be placed down the line and radiation therapy to follow, no sooner than 6 months from the date of surgery. Procedure In Detail: The patient was consented in the preoperative holding area before being transfe rred to the operative suite where general anesthesia was induced. He was given ampicillin 2 g and ge ntamicin 2-3 mg/kg IV antimicrobial prophylaxis, and pneumo boots were provided for DVT prophylaxis. He was placed in the lithotomy position, padded and secured to the table appropriately. His genital ia were prepped with Hibiclens and he was draped in standard fashion. The case was begun using ureth ral sounds to dilate the meatus and fossa navicularis to 30-Luxembourger. I was then able to insert the 26 -Luxembourger resectoscope sheath along with a visual obturator to traverse the urethra and into the bladde r with great difficulty due to significant elevation of a median bar and massive intravesical project ion of the median lobe, making entry into the bladder difficult. However, upon entry, I was able to navigate beyond the median lobe and identified the presence of the bladder calculi sitting posteriorl y to the left of the median lobe. Thus, using continuous flow irrigation with normal saline and a 55 0 nm Thulium laser fiber, I was able to begin fragmenting this bladder calculus. The Thulium fiber w as efficient at fragmenting the stone with a power setting of 1 joule and 20 hertz increasing to a ma ximum of 4 joules and 16 hertz to completely dust the stone into fragments small enough to be evacuat ed using an Donna evacuator. Those stone fragments were removed and sent for chemical analysis. I t hen switched the laser fiber for the bipolar resectoscope large loop and began resecting the intraves ically projecting component of the median lobe. With great difficulty due to the fact that his bladd er was spasming/debbie and demonstrated generally poor compliance throughout the procedure, I wa s able to slowly Whittle away the intravesical projecting component of the median lobe until I was ab le to narrow it down to the level of the bladder neck. I then continued the resection of the elevate d median bar until a smooth trough had been created from the bladder neck down to the verumontanum. Continued resection where necessary was performed to address any lateral lobar hypertrophy, but there was not significant lateral lobar hypertrophy. This was all intravesical projection of an elevated median bar and intravesical projection of the median lobe. So, once completely resected with a nice channel and trough created with the bladder decompressed, Donna evacuated all prostate chips from wit hin the bladder and carefully fulgurated the base of the resection. All bleeding vessels were fulgur ated and with the area completely hemostatic with the bladder decompressed, I then left the bladder f ull and removed the resectoscope. I then replaced a 22-Luxembourger 3-way Lara catheter into his bladder with ease and placed 30 cc of sterile water in the balloon. The catheter was connected to slow drip CBI and the efflux of fluid and urine was crystal clear. The patient was thus taken out of the litho claire position, awakened from general anesthesia, transferred to a stretcher, and then transferred to the recovery room in good condition. Complications: None. Discharge Disposition: He may follow up in the Urology Clinic on Wednesday for a voiding trial. Subseq uent followup should be established in about 3 months, where he should obtain a PSA blood test about a week prior to that clinical visit. At that time, we will schedule surgical time to place fiducial markers and SpaceOAR gel in around October of 2022, or 5 months from the date of the surgery. This ambreen l be done in preparation for beginning radiation therapy in November of [address] Deep natarajan. MARIAH/LILIANA Voice ID: [id number] Report ID: [id number]
== END 2022-06-16 15:46 | disposition home or self-care (01) ==
LOC: OR 08:11
PROVIDERS: ATTEND Urology
PROC: 0TCB8ZZ Extirpation of Matter from Bladder, Via Natural or Artificial Opening Endoscopic (ICD-10-PCS; principal; 2022-06-16 09:45)
PROC: 0VT08ZZ Resection of Prostate, Via Natural or Artificial Opening Endoscopic (ICD-10-PCS; 2022-06-16 09:45)
DX: N40.1 Benign prostatic hyperplasia with lower urinary tract symptoms (principal); N21.0 Calculus in bladder; C61 Malignant neoplasm of prostate; R31.9 Hematuria, unspecified; N13.9 Obstructive and reflux uropathy, unspecified; Z87.440 Personal history of urinary (tract) infections
CPT/HCPCS: 52318; 52601; 93005; 87088; 85025; 87086; 80048; 36415; 85610; 88300; 82360; 71046; J2704 ×2; J2001; J1580; J3010 ×2; A4216; J7120; J2405; J0290; J2250

== ENCOUNTER 2022-09-22 06:16 | Day surgery (SDC) | payer OTHER ==
[2022-09-08 14:21] LABS: Absolute Lymphocytes (CBC) 1.6 K/uL (0.7-4.9); Hematocrit 38.3 % (39.6-49.0); Lymphocytes % 26.8 % (15.3-44.8); MCV 96.1 fL (80-100); MPV 8.1 fL (7.6-11.3); RBC Red Blood Cell Count 3.99 M/uL (4.33-5.43)
[2022-09-08 14:27] LABS: Protime INR 0.96
[2022-09-08 14:33] LABS: Potassium 4.2 mmol/L (3.5-5.1)
[2022-09-22] MEDS ORDERED: Ringers Lactate 1,000 ML IV ONE (06:34)
[2022-09-22] MEDS ORDERED: propofoL 200 MG/20 ML VIAL IV ONE (06:58)
[2022-09-22] MEDS ORDERED: FENTANYL CITR 100 MCG/2 ML ONE (06:59)
[2022-09-22] MEDS ORDERED: LIDOCAINE 1% MPF 5 ML VIAL ONE (06:59)
[2022-09-22] MEDS ORDERED: MIDAZOLAM HCL 2 MG/2 ML INJ ONE (07:33)
[2022-09-22] MEDS: CEFAZOLIN SODIUM 2 GM/VIAL ONE ×2 (07:38→07:50)
[2022-09-22] MEDS ORDERED: EPHEDRINE SULF 50 MG/ML VIAL ONE (07:59)
[2022-09-22] MEDS ORDERED: CODEINE 30MG/APAP 300MG TAB PO PRN (08:38)
[2022-09-22 09:57] VITALS: BP 118/70; TEMP 97.6; O2SAT 98
--- NOTE | 2022-09-22 19:31 | OP ---
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 2.Status post transurethral resection of the prostate. 3.History of acute urinary retention, requiring catheter. 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 2.Status post transurethral resection of the prostate. 3.History of acute urinary retention, requiring catheter. Principal Procedure: 1.Transrectal ultrasound-guided placement of fiducial markers, #2 placed. 2.Transrectal ultrasound-guided insertion of SpaceOAR gel. Indication For Procedure: Mr. Nix is an 82-year-old gentleman with grade group 5 adenocarcinoma o f the prostate who presented to the Urology Clinic with obstructive urinary symptoms requiring a cath eter, subsequently managed with TURP due to his large volume retention. He now is voiding much elizabeth r and it has been 3 months since his procedure. As a result, he is ready to proceed with radiation t herapy in addition to the androgen deprivation therapy he has been undergoing and fiducial markers, a s well as SpaceOAR gel insertion was requested. Procedure In Detail: The patient was consented in the preoperative holding area before being transfe rred to the operative suite, where general anesthesia was induced. He was given Ancef 2 g IV antimic robial prophylaxis and pneumo boots were provided for DVT prophylaxis. He was placed in the high lit hotomy position, padded and secured to the table appropriately. His scrotum and genitalia was elevat ed out of the perineal region using an Ioban drape, and then, the perineal region was prepped with Hi biclens and supplemented by Betadine. A transrectal ultrasound probe was inserted via his rectum wit h ease, and the prostate was visualized in its entirety from the seminal vesicles through the perinea l region. The case was begun using fiducial markers placed under ultrasound guidance via the perineu m into the prostate. The first fiducial marker was placed in the left anterior zone of the prostate in the apical mid gland region. A second fiducial marker was then placed on the right side of the pr ostate again in the anterior mid zone of the prostate in the mid gland base region on the right. Wendy bradley utilized the SpaceOAR needle with the bevel facing appropriately down in the blue lined up, to na vigate via the perineum and successfully into the mid zone of the prostate in the fat plane between t he rectum and the prostate in the space of Denonvilliers. Aspiration was obtained. Once I was confi rmed to be in appropriate position in both the sagittal and coronal planes, and then a puff of saline was given and did show appropriate hydrodissection bilaterally in the mid zone of the prostate. At this point, I then exchanged the saline syringe for the SpaceOAR gel components, and then, injected t he gel continuously into the hydrodissected space which did appropriately separate the rectum from th e base of the prostate and bilaterally elevate the prostate as visible from apex to base as well as f rom left to right as identified ultrasonographically in both dimensions. Once completely inserted, I then removed the SpaceOAR needle, and held a bit of perineal pressure for some mild bleeding coming from the needle sticks in that location. This did stop after 30 seconds to a minute of pressure befo re we then cleansed away the Betadine and removed the Ioban drape. The patient was then taken out of the lithotomy position, awakened from general anesthesia, transferred to a stretcher, and then trans ferred to the recovery room in good condition. Complications: None. Discharge Disposition: He should avoid any excessive perineal pressure activities like tractor or ho rseback riding for the next 1-2 weeks, but otherwise should be able to proceed with normal physical a ctivity as he feels. He may begin simulation for the radiation and radiation treatment as previously planned. At this point. Subsequent followup should be established with me in about 3-6 months' olamide e once he is completed with the radiation or if he has other bothersome urinary symptoms. I did coun reagan him that it would be reasonable for him to consider stopping the tamsulosin at this point since he was voiding without issue. WR/MODL Voice ID: [id number] Report ID: [id number]
== END 2022-09-22 09:40 | disposition home or self-care (01) ==
LOC: OR 06:16
PROVIDERS: ATTEND Urology
PROC: 0VH031Z Insertion of Radioactive Element into Prostate, Percutaneous Approach (ICD-10-PCS; principal; 2022-09-22 07:30)
DX: C61 Malignant neoplasm of prostate (principal); Z98.890 Other specified postprocedural states
CPT/HCPCS: 87088; 85025; 87086; 80048; 36415; 85610; 55874; J2704; J2001; J2250; J3010; J7120

== ENCOUNTER 2024-06-28 13:57 | Emergency (ER) | payer OTHER ==
--- OUTSIDE RECORDS SUMMARY | 2024-06-28 14:02 | XMS REPORT | Clinical Summary ---
Author Name Unknown Organization [facility] [place] Address [address] [place] [address] Care Team Providers Care Team Otr Truck Driver Name Role Phone Alejandro Sr MD Unavailable [phone] Lesa Savage MD Primary Care Provider [phone] Lizandro [place] MD Unavailable [phone] Kei Hernandez Unavailable [phone] Saurabh Holliday MD Unavailable Allergies Active Allergy Reactions Criticality Noted Date Comments Penicillins Rash High 12/31/2020 Tree And Shrub Pollen 12/22/2020 Other reaction(s): runny nose Medications tamsulosin (FLOMAX) 0.4 mg 24 hr capsule Take 1 capsule (0.4 mg) by mouth at bedtime. Active lisinopril (PRINIVIL,ZESTR IL) 20 mg tablet daily. 04/17/2021 Active metoprolol succinate (TOPROL XL) 25 mg 24 hr tablet daily. 02/18/2021 Act anjel abiraterone (Zytiga) 250 mg tabletIndicatio ns:Adenocarcino ma of prostate Take 4 tablets (1,000 mg) by mouth daily. 120 tablet 11 01/26/2023 Active predniSONE (DELTASONE) 5 mg tabletIndicatio ns:Adenocarcino ma of prostate Take 1 tablet (5 mg) by mouth twice daily. 60 tablet 11 01/26/2023 Active Active Problems Problem Noted Date Diagnosed Date Adenocarcinoma of prostate 01/07/2021 Cancer Staging:Clinical stage from 01/17/2021: cT3a, cN0, PSA: 6.2, Grade Group: 5 - Signed by Bridget Aguillon PA on 05/12/2021 Hypertension Hypercholesterolemia Elevated prostate specific antigen (PSA) Urinary obstruction, not elsewhere classified Surgical History Surgery Date Site/Laterality Comments TONSILLECTOMY 07/12/1944 - 07/11/1945 HERNIA REPAIR 07/12/1943 - 07/11/1944 Unknown location Medical History Medical History Date Comments Hypertension Hypercholesterolemia Elevated prostate specific antigen (PSA) Urinary obstruction, not elsewhere classified Acute kidney failure Cancer Acute kidney failure Family History Medical History Relation Name Comments Lung cancer Father Skin cancer Father Heart disease Mother Relation Name Status Comments Father (Age 63) Mother (Age 76) Social History Tobacco Use Types Packs/Day Years Used Date Smoking Tobacco: Never Smokeless Tobacco: Never Alcohol Use Standard Drinks/Week Comments Yes 0 (1 standard drink = 0.6 oz pur e alcohol) socially Sex and Gender Information Value Date Recorded Sex Assigned at Not on file Legal Sex Male 1:41 PM CDT Gender Identity Not on file Sexual Orientation Not on file 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 Not on file Not on file Not on file Obstetrics History Plan of Treatment Health Maintenance Due Date Last Done Comments Pneumococcal Vaccine: 65+ Ye ars (1 of 1 - PCV) 2004 COVID-19 Vaccine (3 - Pfizer risk series) 10/09/2020 09/11/2020, 08/21/2020 Influenza Vaccine (#1) 2024 [place] [id number] GENERIC MEDICARE PART A AND B GENERIC Care Teams Team Otr Truck Driver Relationship Specialty Start Date End Date Alejandro Sr MD [address] [place] [phone] [email or web address] External Referring Internal Medicine 12/25/20 Lesa Savage MD [address] [place] [phone] [email or web address] - [email or web address] Urology 12/25/20 Lizandro [place] MD [facility] , [place] [address] [place] [address] Emergency Medicine 08/05/21 Kei Hernandez PA [address] [place] [phone] [email or web address] Physician [facility] Genitourinary Oncology 03/26/22 Saurabh Holliday MD [address] [place] [phone] [email or web address] Consulting Physician Radiation Oncology 02/07/21
--- NOTE | 2024-06-28 14:50 | RAD REPORT ---
EXAM: CT Head Brain Wo Cont HISTORY: CONFUSED COMPARISON: None available TECHNIQUE: Multiple contiguous axial images were obtained for a CT of the brain without contrast. Sag ittal and coronal reformats were performed. One or more of the following dose reduction techniques were used: Automated exposure control, adjus tment of the mA and kV according to patient size, and iterative reconstruction. Unless otherwise specified, incidental findings do not require dedicated imaging follow-up. FINDINGS: Heterogeneous predominantly hypoattenuating juxtacortical left parietal space-occupying lesion measur ing 4.3 x 3.9 x 3.3 cm in greatest transverse, AP, and CC dimensions. A crescent of hyperdense hemorrhage is seen along the medial margin of the lesion, measuring 3.2 cm in greatest AP dimension, and 1 cm in thickness. Adjacent vasogenic Of white matter edema involving the left parietal and temporal lobes. No abnormal extra-axial collections Pronounced mass effect upon the adjacent sulci, with effacement of the left lateral ventricle body an d trigone. Minimal rightward midline shift with 1 mm bowing of the septum pellucidum. Otherwise mild brain atrophy with mild periventricular and deep white matter chronic microvascular i schemic changes present. The calvarium is intact. The visualized paranasal sinuses and mastoid air cells are essentially clear . IMPRESSION: Space occupying lesion up to 4.3 cm in greatest dimension centered on the left parietal lobe, with an adjacent crescent of acute to subacute hemorrhage. This may represent hemorrhagic transformation of an infarct, versus a hemorrhagic primary malignancy or metastatic lesion. Pronounced adjacent mass effect within the left parietal and temporal lobes with effacement of the le ft lateral ventricle especially the trigone. Minimal rightward midline shift measuring approximately 1 mm. THIS REPORT CONTAINS FINDINGS THAT MAY BE CRITICAL TO PATIENT CARE. The findings were verbally commun icated via telephone to Bridget Isbell MD on 06/28/2024 2:46 PM.
[2024-06-28 15:06] LABS: Absolute Lymphocytes (CBC) 0.6 K/uL (0.7-4.9); Absolute Monocytes 0.7 K/uL (0.1-1.3); Absolute Neutrophil 6.7 K/uL (1.8-8.0); Basophils % 0.5 % (0-1.3); Eosinophils % 0.3 % (0-4.4); Hematocrit 36.3 % (39.6-49.0); Lymphocytes % 7.2 % (15.3-44.8); MCH 33.2 pg (27.0-35.0); MCV 100.5 fL (80-100); MPV 7.7 fL (7.6-11.3); Monocytes % 8.7 % (3.3-12.3); Neutrophils % 83.3 % (41.7-73.7); Platelets 260 thou/uL (152-406); RBC Red Blood Cell Count 3.61 M/uL (4.33-5.43); Red Cell Distribution Width 13.3 % (12.1-15.2)
[2024-06-28 15:22] LABS: Albumin/Globulin Ratio 0.8 (1.1-1.8); Anion Gap 11.2 mEq/L (5.0-15.0); Bilirubin Total 0.2 mg/dL (0.2-1.0); Potassium 4.2 mEq/L (3.5-5.1)
[2024-06-28] MEDS ORDERED: Nicardipine/NS 25 MG/250 ML KIT IV ONE (15:25)
[2024-06-28 15:27] LABS: PT Prothrombin Time 11.5 SECONDS (9.4-12.5); PTT, Activated Partial Thromb 29.7 SECONDS (24.3-36.9); Protime INR 1.03
--- NOTE | 2024-06-28 15:44 | ER ---
Nurse's Notes [facility] Name: Jerson Nix Age: 84 yrs Sex: Male : 1940 Arrival Date: 06/28/2024 Time: 13:57 Bed 6 Private MD: Diagnosis: Abnormal brain scan Presentation: 06/28 14:06 Chief complaint: Friend and/or Co-Worker states: went by to see the patient and the ap3 patient was confusing his credit card, and calling it a "phone". patients friend also reports that the patient is confusing other words. Coronavirus screen: At this time, the client does not indicate any symptoms associated with coronavirus-19. Ebola Screen: No symptoms or risks identified at this time. Initial Sepsis Screen: Does the patient meet any 2 criteria? HR > 90 bpm. Does the patient have a suspected source of infection? No. Patient's initial sepsis screen is negative. Risk Assessment: Do you want to hurt yourself or someone else? Patient reports no desire to harm self or others. Onset of symptoms is unknown. 14:06 Method Of Arrival: Ambulatory ap3 14:06 Acuity: HUMZA 2 ap3 Triage Assessment: 14:11 General: Appears in no apparent distress. Behavior is calm, cooperative, appropriate ap3 for age. Pain: Denies pain. Neuro: Level of Consciousness is awake, alert, obeys commands, Oriented to person, place, time, situation, Appropriate for age friend reports patient is confusing words PRINTER REPAIR TECHNICIAN. Cardiovascular: Patient's skin is warm and dry. Respiratory: Airway is patent Respiratory effort is even, unlabored, Respiratory pattern is regular, symmetrical. Historical: - Allergies: 14:09 No Known Allergies; ap3 - Home Meds: 14:09 metoprolol succinate oral 25 [Active]; lisinopril 20 mg Oral tablet 1 tab daily ap3 [Active]; - PMHx: 14:09 Hypertensive disorder; ap3 - Immunization history:: Client reports receiving the 2nd dose of the Covid vaccine. - Infectious Disease History:: Denies. - Social history:: Smoking status: Patient denies any tobacco usage or history of. Screenin:11 Abuse screen: Denies threats or abuse. Nutritional screening: No deficits noted. ap3 Tuberculosis screening: No symptoms or risk factors identified. 14:59 [facility] ED Fall Risk Assessment (Adult) History of falling in the last 3 months, kc6 including since admission No falls in past 3 months (0 pts) Confusion or Disorientation No (0 pts) Intoxicated or Sedated No (0 pts) Impaired Gait No (0 pts) Mobility Assist Device Used No (0 pt) Altered Elimination No (0 pt) Score/Fall Risk Level 0 - 2 = Low Risk Oriented to surroundings, Maintained a safe environment. 14:59 VAN Screening: Arm Drift: Patient shows no arm weakness. Patient is VAN negative. kc6 Visual Disturbance: No visual disturbance noted. Aphasia: No aphasia noted. Neglect: No neglect noted. Marilee Swallow Protocol Brief Cognitive Screen What is your name? Normal, Where are you right now? Normal, What year is it? Normal. Oral Mechanism Examination Facial Symmetry: Normal, Motion: Normal, Lip Closure: Normal, Oral Mechanism Result: Normal. 3 oz Water Swallow Challenge: Pt able to drink all water without stopping, coughing, choking or throat clearing: Yes Result: PASS MD Notified: Bridget Isbell MD. Assessment: 14:59 General: Appears in no apparent distress. comfortable, well groomed, well developed, kc6 Behavior is calm, cooperative, appropriate for age. Pain: Denies pain. Neuro: Level of Consciousness is awake, alert, obeys commands, confused, Oriented to person, place, situation, Appropriate for age Booking Police Officer are equal bilaterally Moves all extremities. Full function Gait is steady, Speech is normal, Facial symmetry appears normal, Pupils are PERRLA, Intact Babinski is positive. Cardiovascular: Capillary refill < 3 seconds. Respiratory: Airway is patent Trachea midline Respiratory effort is even, unlabored, Respiratory pattern is regular, symmetrical. GI: No signs and/or symptoms were reported involving the gastrointestinal system. : No signs and/or symptoms were reported regarding the genitourinary system. EENT: No signs and/or symptoms were reported regarding the EENT system. Derm: No signs and/or symptoms reported regarding the dermatologic system. Skin is intact, is healthy with good turgor, Skin is pink, warm \\T\\ dry. Musculoskeletal: No signs and/or symptoms reported regarding the musculoskeletal system. Circulation, motion, and sensation intact. Capillary refill < 3 seconds, Range of motion: intact in all extremities. 15:40 Reassessment: Patient appears in no apparent distress at this time. No changes from kc6 previously documented assessment. Patient and/or family updated on plan of care and expected duration. Pain level reassessed. 16:12 Reassessment: Patient appears in no apparent distress at this time. No changes from kc6 previously documented assessment. Patient and/or family updated on plan of care and expected duration. Pain level reassessed. Vital Signs: 14:06 BP 169 / 96; Pulse 102; Resp 18; Temp 98.1; Pulse Ox 100% ; Weight 56.7 kg; ap3 15:00 BP 157 / 94; Pulse 91; Resp 16 S; Pulse Ox 98% on R/A; kc6 15:39 BP 144 / 89; Pulse 89; Resp 16 S; Pulse Ox 100% on R/A; kc6 16:10 BP 147 / 86; Pulse 85; Resp 16 S; Pulse Ox 99% on R/A; kc6 NIH Stroke Scale Scores: 14:59 NIHSS Score: 0 kc6 ED Course: 14:01 Patient arrived in ED. mr 14:05 Bridget Isbell MD is Attending Physician. sw6 14:09 Triage completed. ap3 14:11 Arm band placed on left wrist. ap3 14:16 Jorge Hylton, RN is Primary Nurse. tm6 14:43 CT Head Brain wo Cont In Process Unspecified. EDMS 14:59 Patient has correct armband on for positive identification. Placed in gown. Bed in low kc6 position. Call light in reach. Side rails up X2. Adult w/ patient. personnel monitor on. Pulse ox on. NIBP on. Door closed. Noise minimized. Lights dimmed. Pillow given. 14:59 Inserted saline lock: 22 gauge in right antecubital area, using aseptic technique. kc6 Blood collected. Flushed with 10 mL NS. Patient maintains SpO2 saturation greater than 95% on room air. 15:04 initiated transfer to [facility]. bd 16:12 No provider procedures requiring assistance completed. Patient transferred, IV remains kc6 in place. Administered Medications: 15:31 Drug: niCARdipine IV 5 mg/hr IV at mg/hr See Administration Instructions; max rate 15 kc6 mg/hr; Titrate 2.5 mg/hr as often as every 15 minutes to achieve goal (see titration policy); Goal parameter SBP less than 160 mmHg Route: IV; Rate: mg/hr; Site: right antecubital; 16:10 Follow up: Response: No adverse reaction; Blood pressure is lowered; IV Status: kc6 Infusion continued upon transfer; IV Intake: 250ml Medication: 16:12 VIS not applicable for this client. kc6 Intake: 16:10 IV: 250ml; Total: 250ml. kc6 Outcome: 15:44 ER care complete, transfer ordered by [facility] 16:12 Transferred by helicopter to [facility], Transfer form completed. kc6 Note: report given to JENELLE Skinner 16:12 Condition: stable 16:12 Instructed on the need for transfer, 16:14 Patient left the ED. kc6 NIH Stroke Scale - NIH Stroke Score Date: 06/28/2024 Time: 14:59 Total Score = 0 10. Dysarthria (speech clarity - read or repeat words) - 0(Normal) 11. Extinction and Inattention (visual/tactile/auditory/spatial/personal) - 0(No abnormality) 1a. Level of Consciousness (LOC) - 0(Alert) 1b. Level of Consciousness (LOC) (Month \\T\\ Age) - 0(Both) 1c. LOC Commands (Open \\T\\ Closes Eyes/Needle Loom Tender) - 0(Both) 2. Best Gaze (Lateral Gaze Paresis) - 0(Normal) 3. Visual Field Loss - 0(No visual loss) 4. Facial Palsy - 0(Normal) 5a. Left Arm: Motor (10-second hold) - 0(No drift) 5b. Right Arm: Motor (10-second hold) - 0(No drift) 6a. Left Leg: Motor (5-second hold - always test supine) - 0(No drift) 6b. Right Leg: Motor (5-second hold - always test supine) - 0(No drift) 7. Limb Ataxia (finger/nose \\T\\ heel/godoy - test with eyes open) - 0(Absent) 8. Sensory Loss (pinprick arms/legs/face) - 0(Normal) 9. Best Language: Aphasia (description/naming/reading) - 0(No aphasia) Initials: kc6 Signatures: Dispatcher [employer] EDMS Natalia Scruggs, Ladonna, Reg Reg mr Astrid Sosa, JENELLE RN [id number] Edwige Mccormick RN RN kc6 Jorge Hylton JENELLE RN tm6 Bridget Isbell MD MD sw6 Corrections: (The following items were deleted from the chart) 15:47 14:59 Neuro: Level of Consciousness is awake, alert, obeys commands, confused, kc6 Oriented to person, place, situation, Appropriate for age Booking Police Officer are equal bilaterally Moves all extremities. Full function Gait is steady, Speech is normal, Facial symmetry appears normal, Pupils are PERRLA, Intact Babinski is positive kc6 16:10 15:31 niCARdipine IV 5 mg/hr IV at mg/hr in right antecubital kc6 kc6
--- NOTE | 2024-06-28 15:44 | EDPHYS ---
Physician Documentation [facility] Name: Jerson Nix Age: 84 yrs Sex: Male : 1940 Arrival Date: 06/28/2024 Time: 13:57 Bed 6 Private MD: ED Physician Bridget Isbell HPI: 06/28 14:32 This 84 yrs old Male presents to ER via Ambulatory with complaints of sw6 Confusion. 14:32 The patient presents from home with a friend for evaluation for episode of confusion sw6 that occurred earlier today. The confusion is already resolved prior to arrival in the ER. He denies complaints currently. No chest pain or shortness of breath. No abdominal pain. No nausea, vomiting or diarrhea. No fevers or chills. No weakness to his arms or legs. no blurry vision. No difficulty speech. Here for evaluation.. Historical: - Allergies: 14:09 No Known Allergies; ap3 - Home Meds: 14:09 metoprolol succinate oral 25 [Active]; lisinopril 20 mg Oral tablet 1 tab daily ap3 [Active]; - PMHx: 14:09 Hypertensive disorder; ap3 - Immunization history:: Client reports receiving the 2nd dose of the Covid vaccine. - Infectious Disease History:: Denies. - Social history:: Smoking status: Patient denies any tobacco usage or history of. ROS: 14:32 Constitutional: Negative for fever, chills, and weight loss, Cardiovascular: Negative sw6 for chest pain, palpitations, and edema, Respiratory: Negative for shortness of breath, cough, wheezing, and pleuritic chest pain, Abdomen/GI: Negative for abdominal pain, nausea, vomiting, diarrhea, and constipation, Back: Negative for injury and pain, MS/Extremity: Negative for injury and deformity, Skin: Negative for injury, rash, and discoloration, Neuro: Negative for headache, weakness, numbness, tingling, and seizure, Psych: Negative for depression, anxiety, suicide ideation, homicidal ideation, and hallucinations, Exam: 14:32 Chest/axilla: Normal chest wall appearance and motion. Nontender with no deformity. sw6 No lesions are appreciated. Cardiovascular: Regular rate and rhythm with a normal S1 and S2. No gallops, murmurs, or rubs. Normal PMI, no JVD. No pulse deficits. Respiratory: Lungs have equal breath sounds bilaterally, clear to auscultation and percussion. No rales, rhonchi or wheezes noted. No increased work of breathing, no retractions or nasal flaring. Abdomen/GI: Soft, non-tender, with normal bowel sounds. No distension or tympany. No guarding or rebound. No evidence of tenderness throughout. MS/ Extremity: Pulses equal, no cyanosis. Neurovascular intact. Full, normal range of motion. 14:32 Constitutional: The patient appears in no acute distress, alert, awake, comfortable, non-diaphoretic, non-toxic, well developed, well hydrated, well groomed, well nourished, 14:32 Chest/axilla: Inspection: normal, 14:32 Neuro: Speech is clear. No facial symmetry. Hand blacktop paver operator right equals left. Muscle strength is 5/5 to upper extremities and lower extremities bilaterally. Steady gait., Vital Signs: 14:06 BP 169 / 96; Pulse 102; Resp 18; Temp 98.1; Pulse Ox 100% ; Weight 56.7 kg; ap3 15:00 BP 157 / 94; Pulse 91; Resp 16 S; Pulse Ox 98% on R/A; kc6 15:39 BP 144 / 89; Pulse 89; Resp 16 S; Pulse Ox 100% on R/A; kc6 16:10 BP 147 / 86; Pulse 85; Resp 16 S; Pulse Ox 99% on R/A; kc6 NIH Stroke Scale Scores: 14:59 NIHSS Score: 0 kc6 MDM: 14:17 Medical Screening Exam initiated [facility] 14:32 Differential Diagnosis altered mental status, CVA, TIA, electrolyte abnormality, UTI. [facility] Data reviewed: vital signs, nurses notes. 14:52 ED course: The CT the head is abnormal and shows a likely space-occupying lesion with a [facility] hemorrhagic transformation. He will need transfer for continued management.. 14:59 Consideration of Admission/Observation The patient was transferred to [facility] at the [address] for continued management.. Management of patient was discussed with the following: Emergency physician and neurosurgery at [facility].. Discussion of test interpretation with radiology: I had a discussion with radiology regarding a test interpretation. Results of the CT head. Historians other than the Patient: Friend: Friend who brought him to the ER. 06/28 14:28 Order name: CBC with Diff; Complete Time: 15:19 [facility] 06/28 14:28 Order name: CMP 06/28 14:28 Order name: Lipase 06/28 14:58 Order name: PT-INR 6 06/28 14:58 Order name: Ptt, Activated 06/28 14:29 Order name: CT Head Brain wo Cont; Complete Time: 14:51 06/28 14:28 Order name: IV Saline Lock; Complete Time: 14:58 6 06/28 14:28 Order name: Labs collected and sent; Complete Time: 14:58 Administered Medications: 15:31 Drug: niCARdipine IV 5 mg/hr IV at mg/hr See Administration Instructions; max rate 15 kc6 mg/hr; Titrate 2.5 mg/hr as often as every 15 minutes to achieve goal (see titration policy); Goal parameter SBP less than 160 mmHg Route: IV; Rate: mg/hr; Site: right antecubital; 16:10 Follow up: Response: No adverse reaction; Blood pressure is lowered; IV Status: kc6 Infusion continued upon transfer; IV Intake: 250ml Disposition Summary: 06/28/24 15:44 Transfer Ordered Notes: Transfer Location: [place] [id number] Reason: Higher level of care sw6 Condition: Critical sw6 Problem: new sw6 Symptoms: are unchanged sw6 Accepting Physician: Dr. Diamond in the ED at [facility] at [facility] [place] [place](06/28/24 16:14) kc6 Diagnosis - Abnormal brain scan 6 Discharge Instructions: - Discharge Summary Sheet bd Forms: - SBAR form bd - Medication Reconciliation Form sw6 NIH Stroke Scale - NIH Stroke Score Date: 06/28/2024 Time: 14:59 Total Score = 0 10. Dysarthria (speech clarity - read or repeat words) - 0(Normal) 11. Extinction and Inattention (visual/tactile/auditory/spatial/personal) - 0(No abnormality) 1a. Level of Consciousness (LOC) - 0(Alert) 1b. Level of Consciousness (LOC) (Month \T\ Age) - 0(Both) 1c. LOC Commands (Open \T\ Closes Eyes/Registered Appraiser) - 0(Both) 2. Best Gaze (Lateral Gaze Paresis) - 0(Normal) 3. Visual Field Loss - 0(No visual loss) 4. Facial Palsy - 0(Normal) 5a. Left Arm: Motor (10-second hold) - 0(No drift) 5b. Right Arm: Motor (10-second hold) - 0(No drift) 6a. Left Leg: Motor (5-second hold - always test supine) - 0(No drift) 6b. Right Leg: Motor (5-second hold - always test supine) - 0(No drift) 7. Limb Ataxia (finger/nose \T\ heel/godoy - test with eyes open) - 0(Absent) 8. Sensory Loss (pinprick arms/legs/face) - 0(Normal) 9. Best Language: Aphasia (description/naming/reading) - 0(No aphasia) Initials: kc6 Signatures: Dispatcher [employer] EDMS Dominik Michaud, SPINNERET CLEANER-C SPINNERET CLEANER-Cla1 Astrid Sosa RN RN ap3 Edwige Mccormick RN RN kc6 Bridget Isbell MD MD sw6 Corrections: (The following items were deleted from the chart) 14:29 14:29 CBC+H.LAB.BRZ ordered. EDMS EDMS 14:29 14:29 COMPREHENSIVE METABOLIC PANEL+C.LAB.BRZ ordered. EDMS EDMS 14:29 14:29 LIPASE+C.LAB.BRZ ordered. EDMS EDMS 14:29 14:29 Urinalysis+U.LAB.BRZ ordered. EDMS EDMS 15:03 14:52 Abnormal. sw6 sw6 16:14 15:44 Dr. Diamond in the ED at [facility] sw6 kc6
[2024-06-28 16:42] VITALS: TEMP 98.1
[2024-06-28 16:47] VITALS: BP 147/86; O2SAT 99
== END 2024-06-28 16:14 | disposition short-term general hospital (02) ==
LOC: ER 13:57
DX: R94.02 Abnormal brain scan (principal); I10 Essential (primary) hypertension
CPT/HCPCS: 36415; 70450; 80053; 83690; 85025; 85610; 85730; 96365; 99285